=== PATIENT | female | born 2000 | race Caucasian/White ===

== ENCOUNTER 2025-03-18 11:25 | Emergency (ER) | payer OTHER, BC, SELFPAY ==
[2025-03-18 11:36] VITALS: BP 120/70; PULSE 70; RESP 16; TEMP 37; O2SAT 98; BMI 34.6
--- NOTE | 2025-03-18 11:49 | ED.GENADULT ---
HPI - General Adult General Chief complaint: General Medical Stated complaint: post rabis Time Seen by Provider: 03/18/25 11:42 Source: patient and RN notes reviewed Mode of arrival: ambulatory Limitations: no limitations History of Present Illness ED Provider: Sergey HARTMAN narrative: 24-year-old female presents for evaluation of a cat bite. 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 She was bit by a cat on her right index finger and a small scratch to her left hand as well. She went to urgent care just prior to arrival and was given a prescription for Augmentin. However the cat is unvaccinated and she is requesting rabies vaccine. She reports that she was previously vaccinated in [place] about 3 years ago She also is unsure of her last tetanus shot She has no significant pain no redness to the wounds Related Data Allergies Allergy/AdvReac Type Severity Reaction Status Date / Time No Known Allergies Allergy Verified 03/18/25 11:37 Review of Systems Constitutional: Constitutional: Denies body ache(s), Denies chills, Denies fatigue and Denies fever(s) Eyes: Eyes: Denies blurry vision ENT: Denies vertigo Cardiovascular: Cardiovascular: Denies chest pain and Denies dyspnea on exertion Respiratory: Respiratory: Denies cough and Denies dyspnea on exertion Gastrointestinal: Gastrointestinal: Denies abdominal pain Musculoskeletal: Musculoskeletal: Denies arthralgias and Denies joint swelling Integumentary/Breasts: Skin/Breast: Reports wounds Neurologic: Denies vertigo Endocrine: Endocrine: Denies fatigue PMFSH Social History Social History Advance Directives: No Advance Directives Information Provided: Yes Physical Exam ED Vital Signs: Vital Signs - 24 hr 03/18/25 11:36 Temperature 98.6 F Pulse Rate 70 Respiratory Rate 16 Blood Pressure 120/70 Pulse Oximetry 98 Oxygen Delivery Method Room Air BMI result Body Mass Index 34.6 Const General: healthy appearing, comfortable, no acute distress, alert and awake Nutritional Appearance: well nourished Orientation/consciousness: patient oriented x3 HENMT Head: Yes normocephalic and Yes atraumatic Eyes Eyelids: Yes eyelids normal Conjunctivae: conjunctivae normal Sclerae: sclerae normal Corneas: corneas normal Pupils: Equal, round and reactive pupils present EOM: EOMs intact bilaterally Neck Neck: Yes full ROM Resp Effort & Inspection: normal respiratory effort, able to speak in complete sentences and not labored Skin Other: 2 small scratch tomlin to the radial side of the right index finger General skin exam: elasticity normal Neuro General: patient oriented x3 Cranial nerves: Yes Equal, round and reactive pupils present and Yes Bilaterally intact EOM present Cognition (Neuro): normal cognition Extrem Other: Moving all extremities well without any obvious deformities Medications Administered Discontinued Medications Generic Name Dose Route Start Last Admin Trade Name Freq PRN Reason Stop Dose Admin Diphtheria/Tetanus/Acell Pertussis 0.5 ml 03/18/25 11:48 03/18/25 12:00 Diphth,Pertus(Acell),Tet Adult 0.5 Ml Syringe IM 03/18/25 11:49 0.5 ml .ONCE ONE Administration Rabies Immune Globulin 2,124 unit 03/18/25 11:42 03/18/25 12:05 Rabies Immune Globulin/Pf 900 Unit/3 Ml Vial 20 unit/kg (2124 unit) 03/18/25 11:43 2,124 unit IM Administration ONCE ONE Rabies Vaccine 1 ml 03/18/25 11:42 03/18/25 12:00 Rabies Vaccine (Pcec)/Pf 1 Ml Vial IM 03/18/25 11:43 1 ml .ONCE ONE Administration Medical Decision Making Medical Decision Making MDM Narrative: 24-year-old female presents for evaluation of a cat bite that happened last night. The wounds were cleaned at work. She went to urgent care and was prescribed Augmentin 875 mg b.i.d. x5 days. There was no evidence of active infection. The patient's rabies vaccine was done in [place] 3 years ago, she has due for a full series which was discussed with her. Differential Diagnosis Differential Diagnoses: The differential diagnosis associated with the presentation includes Cat bite Cellulitis Puncture wound Rabies exposure Discharge Plan Discharge Clinical Impression: Open wound of right index finger due to cat bite Patient Disposition: Home, Self-Care Instructions: Animal Bite (ED), Rabies (ED) Additional Instructions: Your in the process of being vaccinated for rabies, your tetanus was updated today. Rabies follow [place] with [place] [facility]: Upon discharge from the ED today, you will be contacted by the Infusion Center to schedule your follow up Rabies vaccines. You will need a total of 3 more injections. If for some reason you do not receive a call, please call the Infusion Center directly at [phone]. Follow up with your primary care provider after completion of the vaccine to have a titer drawn to ensure the vaccines effectiveness. Print Language: Dominican
[2025-03-18] MEDS: Rabies Vaccine (PCEC)/PF 1 ML VIAL IM (12:00)
[2025-03-18] MEDS: Diphth,Pertus(ACell),Tet Adult 0.5 ML SYRINGE IM (12:00)
[2025-03-18] MEDS: Rabies Immune Globulin/PF 900 UNIT/3 ML VIAL 2124 UNIT IM (12:05)
[2025-03-18 12:17] VITALS: BP 120/70; PULSE 70; RESP 16; TEMP 37; O2SAT 98
--- OUTSIDE RECORDS SUMMARY | 2025-03-18 12:54 | XMS_ITS | Clinical Summary ---
Author Organization [place] [id number] [address] [facility] Building Address [address] [place], [place] [address] [address] Phone Care Team Providers Care Director Utilization Management Name Role Phone Physician, No Pcp Primary Care Provider Unavaila ble Allergies No known active allergies Medications amoxicillin (AMOXIL) 500 mg tablet Take 1 tablet (500 mg total) by mouth every 6 (six) hours. Until you have taken all the prescribed medication 5 Active Cryselle, 28, 0.3-30 mg-mcg per tabletIndications :Encounter for annual routine gynecological examination Take 1 tablet by mouth 1 (one) time each day. 28 tablet 12 5 Active Surgical History Surgery Date Site/Laterality Comments KNEE ARTHROSCOPY W/ ACL RECONSTRUCTION Le ft Medical History Medical History Date Comments Patient denies medical problems Family History Medical History Relation Name Comments Coronary artery disease Father Diabetes Father Hypertension Father Suicide Attempts Maternal Grandfather Pneumonia Maternal Grandmother Hypertension Mother sepsis Paternal Grandmother Relation Name Status Comments Father Alive Maternal Grandfather Maternal Grandmother Mother Alive Paternal Grandmother Social History Tobacco Use Types Packs/Day Years Used Date Smoking Tobacco: Never Smokeless Tobacco: Never Tobacco Cessation:Counseling Given: Not Answered Alcohol Use Standard Drinks/Week Comments Not Currently 0 (1 standard drink = 0.6 oz pur e alcohol) Comments No Sex and Gender Information Value Date Recorded Sex Assigned at Not on file Legal Sex Female 11:41 AM EDT Gender Identity Not on file Sexual Orientation Not on file Obstetrics History Para Term AB IAB SAB Ectopic Multiple Livin g Live Births 0 0 0 0 0 0 0 0 Last Filed Vital Signs Vital Sign Reading Time Taken Comments Blood Pressure 121/70 10/15/2024 10:02 AM EDT Pulse 71 10/15/2024 10:02 AM EDT Temperature - - Respiratory Rate 18 10/15/2024 10:02 AM EDT Oxygen Saturation - - Inhaled Oxygen Concentration - - Weight 106 kg (232 lb 9.6 oz) 10/15/2024 10:02 A M EDT Height 175.3 cm (5' 9 ) 10/15/2024 10:02 AM EDT Body Mass Index 34.35 10/15/2024 10:02 AM EDT Plan of Treatment Health Maintenance Due Date Last Done Comments HPV Vaccines (1 - 3-dose series) 2013 DTaP,Tdap,and Td Vaccines (1 - Tdap) 2017 Hepatitis B Vaccines (1 of 3 - 19+ 3-dose series) 2017 COVID-19 Vaccine (2023-2 5 season) 2024 HIV Screening 04/30/2024 Hepatitis C Screening 04/30/2024 Social Influencers of Health Screening 04/30/2024 Depression Screening 07/21/2024 Influenza Vaccine (#1) 2025 Cervical Cancer Screening: P ap Smear 10/16/2027 10/15/2024, 10/15/2024 HIB Vaccines Aged Out No longer eligi ble based on patient's age to complete this topic Hepatitis A Vaccines Aged Out No long er eligible based on patient's age to complete this topic IPV Vaccines Aged Out No longer eligi ble based on patient's age to complete this topic MMR Vaccines Aged Out No longer eligi ble based on patient's age to complete this topic Meningococcal ACWY Vaccine Aged Out N o longer eligible based on patient's age to complete this topic Meningococcal B Vaccine Aged Out No l onger eligible based on patient's age to complete this topic Pneumococcal Vaccine: Pediatrics (0 to 5 Years) and At-Risk Patients (6 to 49 Years) Aged Out No longer eligible b ased on patient's age to complete this topic RSV Immunization Patients Under 20 months Aged Out No longer eligible b ased on patient's age to complete this topic Varicella Vaccines Aged Out No longer eligible based on patient's age to complete this topic Procedures Procedure Name Priority Date/Time Associated Diagnosis Comments HPV WITH REFLEX GENOTYPE Routine 10/15/2024 10:42 AM EDT Encounter for annual routine gynecological examination from Last 3 Months or Most Recently Relevant to Health Maintenance Results * HPV with reflex genotype (10/15/2024 10:42 AM EDT) HPV Negative Negative LAB MICROBIOLOGY METHOD 10/18/2024 2:18 PM EDT [facility] Brushing/Spatula Cervix uteri structure / Unknown 10/15/2024 10:42 AM EDT 10/18/2024 5:50 AM EDT us [facility] MOLECULAR DIAGNOSTI CS ORDERABLES Final Result [facility] ([facility] [address] [place] [address], [place] [phone] from Last 3 Months or Most Recently Relevant to Health Maintenance Insurance [facility] Care Teams Director Utilization Management Relationship Specialty Start Date End Date Physician, No Pcp PCP - General 06/09/24
== END 2025-03-18 12:17 | disposition home or self-care (01) ==
PROVIDERS: Emergency Provider Emergency Medicine
DX: S61.250A Open bite of right index finger without damage to nail, initial encounter (principal); S60.512A Abrasion of left hand, initial encounter; W55.03XA Scratched by cat, initial encounter; Y93.F9 Activity, other caregiving; Y92.238 Other place in hospital as the place of occurrence of the external cause; Y99.0 Civilian activity done for income or pay; Z20.3 Contact with and (suspected) exposure to rabies; Z23 Encounter for immunization
CPT/HCPCS: 90375; 90471; 90675; 90715; 96372; 99282; 99284

== ENCOUNTER 2025-04-02 10:00 | Outpatient (RCR) | payer OTHER, BC, SELFPAY ==
[2025-03-22 11:06] VITALS: BP 120/49; PULSE 75; RESP 16; TEMP 36.7; O2SAT 99
[2025-03-22] MEDS: Rabies Vaccine (PCEC)/PF 1 ML VIAL IM (11:11)
[2025-03-26 10:17] VITALS: BP 132/77; PULSE 76; RESP 17; TEMP 36.9; O2SAT 99
[2025-03-26] MEDS: Rabies Vaccine (PCEC)/PF 1 ML VIAL IM (10:18)
[2025-04-02 11:01] VITALS: BP 134/66; PULSE 82; TEMP 36.2; O2SAT 98
[2025-04-02] MEDS: Rabies Vaccine (PCEC)/PF 1 ML VIAL IM (11:05)
== END 2025-04-04 11:24 | disposition home or self-care (01) ==
LOC: HO.INF 10:00
PROVIDERS: Visit Provider Physician Assistant
DX: Z20.3 Contact with and (suspected) exposure to rabies (principal); T14.8XXD Other injury of unspecified body region, subsequent encounter; W55.01XD Bitten by cat, subsequent encounter
CPT/HCPCS: 90471; 90675